=== PATIENT | female | born 1995 | race Two or more races ===

== ENCOUNTER 2017-02-17 14:12 | Emergency (ER) | payer OTHER ==
[~2017-02-17] VITALS: Ht 177.8 cm; Wt 81.6 kg
[2017-02-17] MEDS ORDERED: PRENATAL TABLE1 EAC1 (14:22)
[2017-02-17 14:55] LABS: URINE APPEARANCE SL CLOUDY; URINE BILIRUBIN NEG (NEG); URINE BLOOD 3+ (NEG); URINE COLOR YELLOW; URINE GLUCOSE NEG (NORM); URINE KETONE TRACE (NEG); URINE LEUKOCYTE ESTERASE 2+ (NEG); URINE NITRATE NEG (NEG); URINE PH 7.5 (5-8); URINE PROTEIN TRACE (NEG); URINE SOURCE CLEAN CATCH; URINE SPECIFIC GRAVITY 1.015 (1.003-1.035)
[2017-02-17 15:00] LABS: MICRO INDICATED? YES
[2017-02-17 15:01] LABS: CULTURE INDICATED? YES; URINE BACTERIA 3+ (NEG); URINE SQUAMOUS EPITHELIAL CELL MANY /[HPF]; URINE WBC 100-200 /[HPF] (0-5)
[2017-02-17 15:06] LABS: BASOPHIL% 0.4 % (0-2.5); EOSINOPHIL% 0.6 % (0.0-7.0); HEMATOCRIT 30.7 % (35.0-45.0); HEMOGLOBIN 10.9 gm/dL (12.0-16.0); LYMPHOCYTE% 12.5 % (17.0-45.0); MEAN CELL VOLUME 85.4 FL (83-96); MEAN CORPUSCULAR HEMOGLOBIN 30.2 PG (28-34); MEAN CORPUSCULAR HGB CONC 35.4 g/dL (30-36); MEAN PLATELET VOLUME 8.5 FL (6.5-11.5); MONOCYTE# 0.8 X10e3 (0-1.0); MONOCYTE% 9.4 % (3.0-12.0); NEUTROPHIL# 6.2 X10e3 (1.5-7.1); NEUTROPHIL% 77.1 % (40-75); PLATELET COUNT 352 X10e3 (140-420); RED CELL DISTRIBUTION WIDTH 13.9 % (11.0-15.5); WHITE BLOOD COUNT 8.1 X10e3 (4.0-10.5)
[2017-02-17 15:10] LABS: DIFF IND NO
[2017-02-17 15:28] LABS: ALKALINE PHOSPHATASE 99 U/L (32-92); ALT (SGPT) 17 U/L (10-40); AST (SGOT) 19 U/L (10-42); BILIRUBIN,TOTAL 0.1 mg/dL (0.2-2.0); BLOOD UREA NITROGEN 8 mg/dL (9-23); CALCIUM SERUM 8.5 mg/dL (8.4-10.2); CARBON DIOXIDE 20 mmol/L (22-31); CHLORIDE 111 mmol/L (100-111); CREATININE SERUM 0.5 mg/dL (0.6-1.4); GLOM FILT RATE Estimated 139.3 mL/min (>60); GLUCOSE FASTING 112 mg/dL (70-110); POTASSIUM 3.9 mmol/L (3.5-5.1); PROTEIN TOTAL SERUM 6.6 g/dL (6.0-8.3); SODIUM 134 mmol/L (135-145)
[2017-02-17 15:55] LABS: BILIRUBIN, DIRECT <0.1 mg/dL (0.0-0.2)
== END 2017-02-17 16:56 | disposition home or self-care (01) ==
LOC: SED 14:12
PROVIDERS: Emergency Medicine
DX: O46.92 Antepartum hemorrhage, unspecified, second trimester (principal); O23.92 Unspecified genitourinary tract infection in pregnancy, second trimester; Z3A.23 23 weeks gestation of pregnancy
CPT/HCPCS: 36415; 80048; 80076; 81003; 85025; 86900; 86901; 87086; 99284